=== PATIENT | male | born 1975 | race African-American/Black ===

== ENCOUNTER 2017-02-16 18:19 | Emergency (ER) | payer MEDICAID ==
[~2017-02-16] VITALS: Ht 190.5 cm; Wt 96.2 kg
[2017-02-16 21:05] VITALS: BP 131/95
[2017-02-16] MEDS ORDERED: FLUORESCEIN SOD 1 MG TEST STRIP LEFTEYE ONE (21:45)
[2017-02-16] MEDS ORDERED: HYDROcodone-ACET 5/325MG TAB PO ONE (22:15)
[2017-02-16] MEDS ORDERED: cefTRIAXone SOD 1,000 MG VL IM ONE (22:30)
== END 2017-02-16 22:51 | disposition home or self-care (01) ==
LOC: ER 18:21
DX: S02.652A Fracture of angle of left mandible, initial encounter for closed fracture (principal); S02.5XXA Fracture of tooth (traumatic), initial encounter for closed fracture; Y08.89XA Assault by other specified means, initial encounter; Y93.89 Activity, other specified; Y99.8 Other external cause status; Y92.89 Other specified places as the place of occurrence of the external cause
CPT/HCPCS: 70486; 96372; 99284; J0696

== ENCOUNTER 2017-02-26 12:22 | Emergency (ER) | payer MEDICAID ==
[~2017-02-26] VITALS: Ht 190.5 cm; Wt 97.5 kg
[2017-02-26 13:00] VITALS: BP 141/104
== END 2017-02-26 13:40 | disposition home or self-care (01) ==
LOC: ER 12:22
DX: S02.652D Fracture of angle of left mandible, subsequent encounter for fracture with routine healing (principal); F17.210 Nicotine dependence, cigarettes, uncomplicated; X58.XXXD Exposure to other specified factors, subsequent encounter